=== PATIENT | female | born 1970 | race Caucasian/White ===

== ENCOUNTER 2020-08-08 12:58 | Emergency (ER) | payer MEDICARE ==
[2020-08-08] MEDS ORDERED: Ketorolac 30 MG/ML SDV IVPUSH ONE (13:15)
[2020-08-08] MEDS ORDERED: Morphine 2 MG/ML SYRINGE IVPUSH ONE (13:15)
[2020-08-08] MEDS ORDERED: Cyclobenzaprine 10 MG Tab PO ONE (13:16)
[2020-08-08] MEDS: Sodium Chloride 0.9% 10 ML Syringe FLUSH PRN ×2 (13:30→15:12)
[2020-08-08] MEDS ORDERED: Morphine 2 MG/ML SYRINGE IVPUSH STA (15:02)
--- NOTE | 2020-08-08 15:07 | EDM.PDOC ---
ED HPI GENERAL MEDICAL PROBLEM - General Stated Complaint: NECK PAIN Time Seen by Provider: 08/08/20 15:00 Source of Information: Reports: Patient History Limitations: Reports: No Limitations - History of Present Illness INITIAL COMMENTS - FREE TEXT/NARRATIVE: Patient presented to the Ed because of neck pain. She has a history of spinal fusion due to broken vertebra. For the past several monthnts it has been getting worse. Today she was trying to clam picker an object and experienced a 10/10 pain on the right side of her neck. The pain radiates to her right arm and shoulder. 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 Lower Neck Pain Score (Numeric/FACES): 10 - Related Data Allergies Allergy/AdvReac Type Severity Reaction Status Date / Time No Known Allergies Allergy Verified 08/08/20 13:17 Home Meds: Home Meds Acetaminophen 500 mg PO ASDIRECTED PRN 08/08/20 [History] Gabapentin [Neurontin] 300 mg PO TID #90 cap 08/08/20 [Rx] Ibuprofen 200 mg PO ASDIRECTED PRN 08/08/20 [History] Ibuprofen [Motrin] 800 mg PO Q8H PRN #90 tablet 08/08/20 [Rx] Nortriptyline 25 mg PO BEDTIME 08/08/20 [History] tiZANidine [Zanaflex] 2 mg PO Q8H #90 tab 08/08/20 [Rx] tiZANidine [Zanaflex] 4 mg PO BEDTIME PRN 08/08/20 [History] Past Medical History Cardiovascular History: Reports: None Respiratory History: Reports: None Gastrointestinal History: Reports: None Genitourinary History: Reports: None 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: Musculoskeletal History: Reports: Neck Pain, Chronic Neurological History: Reports: Migraines Psychiatric History: Reports: None Endocrine/Metabolic History: Reports: None Hematologic History: Reports: None Immunologic History: Reports: None Oncologic (Cancer) History: Reports: None Dermatologic History: Reports: None - Past Surgical History HEENT Surgical History: Reports: None Cardiovascular Surgical History: Reports: None Respiratory Surgical History: Reports: None GI Surgical History: Reports: Cholecystectomy Female Surgical History: Reports: None Endocrine Surgical History: Reports: None Neurological Surgical History: Reports: None Musculoskeletal Surgical History: Reports: Other (See Below) Other Musculoskeletal Surgeries/Procedures:: SPINAL FUSION, RIB REMOVAL Oncologic Surgical History: Reports: None Dermatological Surgical History: Reports: None Social & Family History - Tobacco Use Tobacco Use Status *Q: Light Tobacco User Years of Tobacco use: 15 Packs/Tins Daily: 0.2 - Caffeine Use Caffeine Use: Reports: Coffee, Soda, Tea - Recreational Drug Use Recreational Drug Use: Yes Recreational Drug Type: Reports: Marijuana/Hashish ED ROS GENERAL - Review of Systems Review Of Systems: See Below Constitutional: Reports: No Symptoms HEENT: Reports: No Symptoms Respiratory: Reports: No Symptoms Cardiovascular: Reports: No Symptoms Endocrine: Reports: No Symptoms GI/Abdominal: Reports: No Symptoms : Reports: No Symptoms Musculoskeletal: Reports: Neck Pain, Shoulder Pain Skin: Reports: No Symptoms Neurological: Reports: No Symptoms, Confusion, Dizziness Psychiatric: Reports: No Symptoms ED EXAM, GENERAL - Physical Exam Exam: See Below Exam Limited By: No Limitations General Appearance: Alert, No Apparent Distress Ears: Normal External Exam, Normal Canal Nose: Normal Inspection, Normal Mucosa, No Blood Throat/Mouth: Normal Inspection Head: Atraumatic, Normocephalic Neck: Normal Inspection, Full Range of Motion, Tender Lateral (muscle spasm rt side of neck), Other Respiratory/Chest: No Respiratory Distress, Lungs Clear, Normal Breath Sounds Cardiovascular: Normal Peripheral Pulses, Regular Rate, Rhythm, No Edema, No JVD, No Murmur, No Rub GI/Abdominal: Normal Bowel Sounds, Soft, Non-Tender, No Organomegaly Back Exam: Normal Inspection, Full Range of Motion Extremities: Normal Inspection, Normal Range of Motion, Non-Tender Neurological: Alert, Oriented, CN II-XII Intact, Normal Cognition, Normal Gait, Normal Reflexes, No Motor/Sensory Deficits Psychiatric: Normal Affect, Normal Mood Course - Vital Signs Text/Narrative:: Toradol 30 mg IV x1 Flexeril 10 mg PO x1 Morphine 2 MG IV x2 MRI-cervical spine 07/25/20 was reviewed Last Recorded V/S: Last Vital Signs Temp 36.8 C 08/08/20 13:00 Pulse 114 H 08/08/20 14:30 Resp 22 H 08/08/20 13:00 BP 146/90 H 08/08/20 13:00 Pulse Ox 98 08/08/20 14:30 - Orders/Labs/Meds Orders: Active Orders 24 hr Category Date Time Status Sodium Chloride 0.9% [Saline Flush] Med 08/08/20 13:14 Active 10 ml FLUSH ASDIRECTED PRN Peripheral IV Insertion Adult [OM.PC] Routine Oth 08/08/20 13:14 Ordered Medication Orders Sodium Chloride (Sodium Chloride 0.9% 10 Ml Syringe) 10 ml FLUSH ASDIRECTED PRN PRN Reason: Keep Vein Open Last Admin: 08/08/20 13:30 Dose: 10 ml Documented by: ARSALAN Meds: Medications Generic Name Dose Route Start Last Admin Trade Name Freisabel PRN Reason Stop Dose Admin Sodium Chloride 10 ml 08/08/20 13:14 08/08/20 13:30 Sodium Chloride 0.9% 10 Ml Syringe FLUSH 10 ml ASDIRECTED PRN Administration Keep Vein Open Discontinued Medications Generic Name Dose Route Start Last Admin Trade Name Freq PRN Reason Stop Dose Admin Cyclobenzaprine HCl 10 mg 08/08/20 13:16 08/08/20 13:20 Cyclobenzaprine 10 Mg Tab PO 08/08/20 13:17 10 mg ONETIME ONE Administration Ketorolac Tromethamine 30 mg 08/08/20 13:15 08/08/20 13:20 Ketorolac 30 Mg/Ml Sdv IVPUSH 08/08/20 13:16 30 mg ONETIME ONE Administration Morphine Sulfate 2 mg 08/08/20 13:15 08/08/20 13:21 Morphine 2 Mg/Ml Syringe IVPUSH 08/08/20 13:16 2 mg ONETIME ONE Administration Morphine Sulfate 2 mg 08/08/20 15:02 Morphine 2 Mg/Ml Syringe IVPUSH 08/08/20 15:03 NOW STA Departure - Departure Time of Disposition: 15:10 Disposition: Home, Self-Care 01 Condition: Good Clinical Impression: Chronic neck pain, Radiculopathy affecting upper extremity - Discharge Information Prescriptions: Ibuprofen [Motrin] 800 mg PO Q8H PRN #90 tablet PRN Reason: Pain Gabapentin [Neurontin] 300 mg PO TID #90 cap tiZANidine [Zanaflex] 2 mg PO Q8H #90 tab Additional Instructions: Please read discharge instructions for radiculopathy and neck pain Take gabapentin and tizanidine every 8 hours for bethany and spasm. Better to take them both even if you're not in pain Ibuprofen 800 mg and tylenol 1000 mg every 8 hours as needed for pain Follow up as needed Sepsis Event Note (ED) - Evaluation Sepsis Screening Result: No Definite Risk - Focused Exam Vital Signs: Vital Signs Temp Pulse Resp BP Pulse Ox 08/08/20 14:30 114 H 98 08/08/20 13:00 36.8 C 143 H 22 H 146/90 H 100 - My Orders Last 24 Hours: My Active Orders 08/08/20 13:14 Sodium Chloride 0.9% [Saline Flush] 10 ml FLUSH ASDIRECTED PRN Peripheral IV Insertion Adult [OM.PC] Routine - Assessment/Plan Last 24 Hours: My Active Orders 08/08/20 13:14 Sodium Chloride 0.9% [Saline Flush] 10 ml FLUSH ASDIRECTED PRN Peripheral IV Insertion Adult [OM.PC] Routine
== END 2020-08-08 15:30 | disposition home or self-care (01) ==
LOC: FB.ED 12:58
DX: M54.12 Radiculopathy, cervical region (principal); Z72.0 Tobacco use; Z79.899 Other long term (current) drug therapy
CPT/HCPCS: 96374; 96375; 96376; 99283-25; A9270-GY; J1885; J2270